=== PATIENT | female | born 1945 | race Caucasian/White ===

== ENCOUNTER 2017-04-20 11:07 | Day surgery (SDC) | payer MEDICARE ==
[~2017-04-20] VITALS: Ht 160 cm; Wt 77.1 kg
[~2017-04-20 11:07] MED LIST: 0.9% Sodium Chloride 1,000 ML IV PRN; ASPI-973 PO; CALC-890 PO; CARV12.52 PO; CHOL10008 PO; FLUO20CA25 PO; LISI30TA5 PO; MULT1CAP33 PO; PANT40SU PO; SIMV40TA5 PO; Sodium Chloride LOK Flush 10 mL Syringe IV PRN; VITA400C64 PO; fentaNYL-PF 50 mCg/mL 2 mL Inj IVPUSH PRN
[2017-04-20 11:43] VITALS: BP 166/99; PULSE 55; RESP 16; O2SAT 98
[2017-04-20 13:32] VITALS: BP 178/87; PULSE 53; RESP 16; O2SAT 99
[2017-04-20 13:42] VITALS: BP 161/83; PULSE 53; RESP 16; O2SAT 98
[2017-04-20 13:52] VITALS: BP 161/89; PULSE 55; RESP 16; O2SAT 98
--- NOTE | 2017-04-20 22:55 | ENDO ---
[address] [address] ENDOSCOPY PROCEDURE PATIENT: CIARA FREED : 1945 MR#: [id number] ADMIT: 04/20/2017 JOB ID: [id number] DATE OF SERVICE: 04/20/2017 PROCEDURE: Endoscopic ultrasound with fine needle aspiration. INDICATIONS: Posterior wall submucosal mass. The patient's ASA classification is 2, Mallampati score is 2. INSTRUMENTS USED: A GIF H 180 J as well as GFUE 160 AL 5 radial echo endoscope as well as a GF ECT 180 linear echo endoscope. MEDICATIONS ADMINISTERED: 1. Versed 3 mg. 2. Fentanyl 50 mcg. PROCEDURE DETAILS: After informed consent was obtained, the patient was brought into the GI suite, where she was placed in a left lateral decubitus position and medications were administered for sedation. Digital rectal exam was performed and a soft mass was palpable on the posterior rectal wall. Standard upper endoscope was then inserted into the rectum and advanced to the proximal rectum. The scope was then withdrawn and on the posterior wall there was what appeared to be an approximately 2 cm submucosal lesion. Overlying mucosa appeared unremarkable. Retroflexion was performed. Retroflexed views demonstrated that this lesion was at least 5 cm from the anal verge. Next, the radial echo endoscope was then introduced through the rectum, and radial echo endoscopic imaging demonstrated an approximately 1.8 x 3.9 cm hypoechoic-appearing lesion arising from the muscularis propria. The lesion did not appear to be invading the deeper structures and appeared to be contained within the muscularis propria. No enlarged lymph nodes were appreciated. Next, the radial echo endoscope was then withdrawn and the linear echoendoscope was then introduced through the rectum. The visualized lesion was appreciated with radial echo endoscopic findings. Using a 22-gauge core needle, two passes were made into the lesion. Specimen was then placed in [facility] and sent to pathology. Next, we then reintroduced the upper endoscope back into the rectum, and we did appreciate the site of our needle puncture which appeared unremarkable. There was no active bleeding from the area and was on the posterior wall. Retroflexion was performed which was unremarkable. The scope was then withdrawn. IMPRESSION: A 1.8 cm x 3.9 cm submucosal mass arising from the muscularis propria which appeared slightly hypoechoic. RECOMMENDATIONS: Await pathology results and pending pathology results further plans to be determined. COMPLICATIONS: None. ESTIMATED BLOOD LOSS: Less than 5 mL.
--- NOTE | 2017-04-25 15:14 | PATH ---
SURGICAL PATHOLOGY Attending Physician:Lizzy Nugent CASE STATUS: Signed Out PATIENT NAME: CIARA FREED PID: [id number] : 1945 DATE COLLECTED:04/20/2017 00:00 SPECIMEN: Submucosal Rectal Mass CLINICAL HISTORY: Submucosal Rectal Mass No ICD-10 code given FINAL DIAGNOSIS: NEEDLE ASPIRATION CYTOLOGY SPECIMEN TAKEN FROM SUBMUCOSAL RECTAL MASS: NEGATIVE FOR MALIGNANT CELLS. CELLS PRESENT INCLUDE GROUPS OF BENIGN-APPEARING EPITHELIAL CELLS; HOWEVER, THEIR CHARACTERISTICS ARE NOT THOSE OF MALIGNANCY. INFLAMMATORY CELLS ARE ALSO PRESENT. ICD10 K62.89 GROSS DESCRIPTION: Received on 04/24/2017 in [facility] is a total volume of 30 cc of clear colorless fluid. Prepared are one cell block and one ThinPrep slide. vo/hk ICD-9 CODES: CPT CODES: 1: 96713, 73328 Electronically Signed Out Marshal Dobbs MD Formerly [facility] [address], [place] [address] Technical component performed at [facility], [facility] [address], [place], [address]
== END 2017-04-20 23:59 | disposition home or self-care (01) ==
LOC: END 11:07
PROVIDERS: ATTEND Internal Medicine Gastroenterology
DX: K62.89 Other specified diseases of anus and rectum (principal); I10 Essential (primary) hypertension; E78.5 Hyperlipidemia, unspecified; F32.9 Major depressive disorder, single episode, unspecified; K21.9 Gastro-esophageal reflux disease without esophagitis; Z79.82 Long term (current) use of aspirin
CPT/HCPCS: 45342; 99153; G0500; J2250; J3010; J7030